=== PATIENT | female | born 1955 | race Caucasian/White ===

== ENCOUNTER 2017-07-03 22:33 | Emergency (ER) | payer OTHER ==
[2017-07-03 22:57] VITALS: RESP 16
--- NOTE | 2017-07-03 23:37 | EDPHY ---
H & P Stated Complaint: sudden loss of vision in L eye x 4hrs, aphasic x 1 week. HPI/ROS: HPI The patient presents with vision changes over the last 4 hours. She initially felt as if a piece of hair or eyelash was stuck in her left eye about 4 hours ago while she was walking. Her symptoms got progressively worse and she came in to the emergency department. She describes it as if there is a thin brown paper bag overlying her entire visual field. She has no pain. She has no prior history of similar. Yesterday, she [place] 13,000 [place]. Afterwards she developed which she describes as a mild migraine headache which was in her left frontal and retro-orbital region. This has improved completely today. She did mention to the nurse at triage that she was having some word-finding difficulties. She says over the last 3 weeks she sometimes gets her wording wrong though this happens very rarely. She has no slurring of her speech or memory loss. She denies any difficulty swallowing, weakness or numbness of her arms or legs or any facial droop. REVIEW OF SYSTEMS Constitutional: No fever, no chills. Eyes: No discharge. ENT: No sore throat. Cardiovascular: No chest pain, no palpitations. Respiratory: No cough, no shortness of breath. Gastrointestinal: No abdominal pain, no vomiting. Genitourinary: No hematuria. Musculoskeletal: No back pain. Skin: No rashes. Neurological: No headache. 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 General Appearance: Alert, no distress EYE EXAM Visual Acuity: Left eye shadows only, cannot count fingers, right eye 20/40, there is no obvious visual field cut on the left Pupils: equal round and reactive to light EOMI Skin: no proptosis, no periorbital erythema or swelling, no vesicles Conjunctivae: not injected, no discharge ENT, Mouth: Mucous membranes moist Respiratory: Breathing comfortably Neurological: A&O, cranial nerves 2-12 are intact, moves all extremities Skin: Warm and dry, no rashes Musculoskeletal: Neck is supple non tender Extremities: symmetrical, full range of motion Psychiatric: Patient is oriented X 3, there is no agitation Source: Patient Exam Limitations: No limitations - Personal History Current Tetanus Diphtheria and Acellular Pertussis (TDAP): Unsure - Medical/Surgical History Hx Asthma: No Hx Chronic Respiratory Disease: No Hx Diabetes: No Hx Cardiac Disease: No Hx Renal Disease: No Hx Cirrhosis: No Hx Alcoholism: No Hx HIV/AIDS: No Hx Splenectomy or Spleen Trauma: No Other PMH: sjogrens, hypothyroid, depression - Social History Smoking Status: Never smoked Constitutional: Initial Vital Signs Temperature (C) 36.4 C 07/03/17 22:54 Heart Rate 83 07/03/17 22:54 Respiratory Rate 16 07/03/17 22:54 Blood Pressure 160/92 H 07/03/17 22:54 O2 Sat (%) 97 07/03/17 22:54 O2 Delivery Mode Room Air Allergies/Adverse Reactions: No Known Allergies Allergy (Unverified 07/03/17 22:50) Home Medications: Medication Instructions Recorded Calcium Carbonate [Calcium] 500 mg PO 07/03/17 Cevimeline HCl [Evoxac] 07/03/17 Escitalopram Oxalate [Lexapro 10 07/03/17 MG] Levoxyl 07/03/17 Sennosides/Docusate Sodium [Stool 07/03/17 Softener Tablet] Medical Decision Making Procedures: Bedside ocular Ultrasound- performed and interpreted by me. Indication: Left-sided vision change Findings: 1/3 of posterior chamber with homogeneous appearance fluid which is mobile, there is no obvious retinal detachment, vitreous detachment possible Impression: Vitreus detachment likely with hemorrhage Differential Diagnosis: This is a 62-year-old female history of migraine headache and possible brain aneurysm with acute painless vision change of her left eye. On exam, she has extensive vitreus hemorrhage of her left eye, with likely associated vitreus detachment. Ultrasound does not reveal any retinal detachment. She does not have a headache, though does have a history of migraine, her neurologic exam is otherwise normal. I doubt CVA or subarachnoid hemorrhage. I discussed the diagnosis with her. I discussed the case with the curtain cutter personnel adviser Dr. Chiquis Gonzales. She agreed that the patient needs urgent follow-up tomorrow morning. The patient is to call her clinic at 8:30 a.m. for an appointment later in the morning. I will discharge the patient and I have given her return precautions. Departure - Departure Disposition: Home, Routine, Self-Care Clinical Impression: Vitreous detachment of left eye, Vitreous hemorrhage, left eye Condition: Good Instructions: Blurred Vision (ED) Additional Instructions: Please call the Pediatric Assistant's office tomorrow at 8:30am for an appointment later in the morning. [phone] Referrals: Chiquis Gonzales MD [Non Staff Provider (MD)] - As per Instructions
[2017-07-03 23:40] VITALS: BP 125/78; PULSE 85; TEMP 97.9; O2SAT 96
== END 2017-07-03 23:43 | disposition home or self-care (01) ==
LOC: CED 22:33
DX: H43.812 Vitreous degeneration, left eye (principal); H43.12 Vitreous hemorrhage, left eye

== ENCOUNTER 2017-10-11 09:06 | Emergency (ER) | payer OTHER ==
--- NOTE | 2017-10-11 10:10 | EDPHY ---
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 She states she has developed a significant nonproductive cough for the past 2 days. She now has diffuse body aches. She describes back pain. She has noticed increased heart rate when she is walking up stairs. She has no leg pain or swelling. No abdominal pain. No nausea vomiting. She denies fevers or chills. Patient states she is concerned she has pneumonia or the flu. REVIEW OF SYSTEMS: My complete review of systems is negative except as mentioned in the HPI. 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 HEENT: Eyes normal to inspection, normal pharynx, no signs of dehydration. NECK: No thyromegaly, no lymphadenopathy, supple. RESPIRATORY: Clear to auscultation bilaterally, no rales, rhonchi or wheezing. CVS: Regular rate and rhythm, no rubs, murmurs, or gallops. ABDOMEN: Soft, nontender, nondistended, no organomegaly. BACK: Normal to inspection, no CVA tenderness. SKIN: Normal color, no rash, warm, dry. No pallor. EXTREMITIES: No pedal edema, no calf tenderness, no Homans sign or cords, no joint swelling. NEURO/PSYCH: Alert and oriented x3, normal mood and affect, normal motor sensory exam. No obvious cranial nerve deficit. Constitutional: Initial Vital Signs Temperature (C) 36 C 10/11/17 09:33 Heart Rate 97 10/11/17 09:33 Respiratory Rate 16 10/11/17 09:33 Blood Pressure 110/77 10/11/17 09:33 O2 Sat (%) 96 10/11/17 09:33 O2 Delivery Mode Room Air Allergies/Adverse Reactions: SANCERT Allergy (Uncoded 10/11/17 09:36) Home Medications: Medication Instructions Recorded Cevimeline HCl [Evoxac] 07/03/17 Escitalopram Oxalate [Lexapro 10 07/03/17 MG] Levoxyl 07/03/17 Oseltamivir Phosphate [Tamiflu] 75 mg PO BID 5 Days capsule 10/11/17 Wellbutrin 10/11/17 Medical Decision Making - Diagnostics Imaging Results: Imaging Impressions Chest X-Ray 10/11/17 09:25 Impression: Mild airways disease. No pneumonia. ED Course/Re-evaluation: In the emergency department I discussed possible etiologies with the patient. Chest x-ray and flu swab was ordered. Chest x-ray: Please refer the dictated report by Dr. Caal. No focal infiltrate. Patient was flu a positive. I discussed the results with the patient. Patient was given warnings and instructions for return. She will be given a prescription of Tamiflu. She is given warnings prior to leaving. Differential Diagnosis: My differential includes but is not limited to pneumonia, influenza, bronchitis , bacteremia, sepsis - Data Points Laboratory Results: 10/11/17 09:20 Influenza A,B Rapid POSITIVE FOR FLU A H (NEGATIVE) Departure - Departure Disposition: Home, Routine, Self-Care Clinical Impression: Influenza A Condition: Good Instructions: Influenza (ED) Additional Instructions: You had a positive influenza a test. Your x-ray did not show any focal infiltrates (pneumonia) at this time. Return with increasing shortness of breath, worsening body aches, or any other concerns. Referrals: KAYA GUERRERO [Primary Care Provider] - 5-7 days, call for appt. Prescriptions: Oseltamivir Phosphate [Tamiflu] 75 mg PO BID 5 Days capsule
[2017-10-11 10:21] VITALS: BP 128/70; PULSE 83; RESP 20; TEMP 99.3; O2SAT 97
== END 2017-10-11 10:21 | disposition home or self-care (01) ==
LOC: CED 09:06
DX: J10.1 Influenza due to other identified influenza virus with other respiratory manifestations (principal)
CPT/HCPCS: 71020-PO; 87400-PO

== ENCOUNTER 2018-02-26 15:04 | Emergency (ER) | payer OTHER ==
--- NOTE | 2018-02-26 15:13 | EDPHY ---
H & P Time Seen by Provider: 02/26/18 15:12 HPI/ROS: HPI CHIEF COMPLAINT: Neck pain, trouble fingers and left hand HISTORY OF PRESENT ILLNESS: Patient is a 62-year-old female she is otherwise healthy, she had a remote history of cervical spinal fusion done approximately 10 years ago, she presents emergency room stating that she is due to have a revision of this spinal fusion and is currently undergoing consultation with a neurosurgeon. However this morning she woke up with some worsening neck pain and trouble with her 4th and 5th digit on the left hand. They are somewhat hyperreflexic in. She states they are numb. She is concerned that her neck may be getting worse. She denies any chest pain or shortness of breath, denies headache. Denies arm weakness. She does report numbness and tingling in her 4th and 5th digit. And that they are weak. The 5th digit is noted to be flexed in. She does have some radicular pain from her neck on the left side going down her left arm. Past Medical History: Sjogren's, carrier of hemochromatosis Past Surgical History: Cervical spine fusion, overactive me, retinal detachment , cataract, appendectomy Social History: Denies drugs alcohol tobacco. Family History: ROS REVIEW OF SYSTEMS: A comprehensive 10 point review of systems is otherwise negative aside from elements mentioned in the history of present illness. Exam Constitutional triage nursing summary reviewed, vital signs reviewed, awake/ alert. Eyes normal conjunctivae and sclera, EOMI, PERRLA. HENT normal inspection, atraumatic, moist mucus membranes, no epistaxis, neck supple/ no meningismus, no raccoon eyes. Respiratory clear to auscultation bilaterally, normal breath sounds, no respiratory distress, no wheezing. Cardiovascular rate normal, regular rhythm, no murmur, no edema, distal pulses normal. Gastrointestinal soft, non-tender, no rebound, no guarding, normal bowel sounds, no distension, no pulsatile mass. Genitourinary no CVA tenderness. Musculoskeletal no midline vertebral tenderness, full range of motion, no calf swelling, no tenderness of extremities, no meningismus, good pulses, neurovascularly intact. Skin pink, warm, & dry, no rash, skin atraumatic. Neurologic Left ARM: This is a good distal pulse. 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 awake, alert and oriented x 3, AAOx3, moves all 4 extremities equally, motor intact, sensory intact, CN II-XII intact, normal cerebellar, normal vision, normal speech. Psychiatric normal mood/affect. Heme/Lymph/Immune no lymphadenopathy. Differential Diagnosis: Includes not limited to in a particular order ulnar nerve neuropathy, complication of cervical fusion, hardware loosening, nerve root compression Medical Decision Making: After lengthy discussion with the patient recommend urgent MRI either [facility] emergency room or [facility] emergency room the patient prefers to go to [facility] emergency room. Plan will be for urgent neck MRI to evaluate the weakness in her left hand that appears to be in the ulnar distribution. I spoke with Dr. Tyrone Moe who is the attending over at [facility] ER who will see and evaluate the patient for most likely MRI of the cervical spine. Re-evaluation: Patient can be safely discharged from [facility] Emergency room she will go by private vehicle over to [facility] ER. They are expecting her. Source: Patient - Personal History Tetanus Vaccine Date: < 10 YEARS - Medical/Surgical History Hx Asthma: No Hx Chronic Respiratory Disease: No Hx Diabetes: No Hx Cardiac Disease: No Hx Renal Disease: No Hx Cirrhosis: No Hx Alcoholism: No Hx HIV/AIDS: No Hx Splenectomy or Spleen Trauma: No Other PMH: sjogrens, hypothyroid, depression - Social History Smoking Status: Never smoked Constitutional: Initial Vital Signs Temperature (C) 36.6 C 02/26/18 15:15 Heart Rate 74 02/26/18 15:15 Respiratory Rate 18 02/26/18 15:15 Blood Pressure 139/88 H 02/26/18 15:15 O2 Sat (%) 96 02/26/18 15:15 O2 Delivery Mode Room Air Allergies/Adverse Reactions: SANCERT Allergy (Uncoded 10/11/17 09:36) Home Medications: Medication Instructions Recorded NK [No Known Home Meds] 02/26/18 Departure - Departure Disposition: Home, Routine, Self-Care Clinical Impression: Ulnar nerve neuropathy Qualifiers: Laterality: left Qualified Code(s): G56.22 - Lesion of ulnar nerve, left upper limb Condition: Good Instructions: Paresthesia (ED), Peripheral Neuropathy (ED) Additional Instructions: 1. Please go to [facility] emergency room. They are expecting you. Referrals: Terri Hobson PA [Primary Care Provider] - As per Instructions
--- NOTE | 2018-02-26 18:04 | EDPHY ---
H & P Stated Complaint: c/o Little finger weaknes, numbness and inc. neck pain since this am Time Seen by Provider: 02/26/18 15:12 HPI/ROS: CHIEF COMPLAINT: Paresthesias and weakness HISTORY OF PRESENT ILLNESS: The patient is referred to the emergency department for evaluation of paresthesias and weakness involving the left hand. The patient has a history of prior cervical spine fusion performed in 2007. She has been experiencing intermittent worsening neck pain and decreased range of motion for some time. She is currently under the care of a neurosurgeon in [place]. The patient did have recent cervical spine x-rays which demonstrated the possibility of a loosening hardware at C7. The patient reports that today she is notice paresthesias involving her 4th and 5th fingers. She is having inability to flex and extend her left 5th finger. REVIEW OF SYSTEMS: A comprehensive 10 point review of systems is otherwise negative aside from elements mentioned in the history of present illness. Source: Patient Exam Limitations: No limitations - Personal History Current Tetanus Diphtheria and Acellular Pertussis (TDAP): No Tetanus Vaccine Date: < 10 YEARS - Medical/Surgical History Hx Asthma: No Hx Chronic Respiratory Disease: No Hx Diabetes: No Hx Cardiac Disease: No Hx Renal Disease: No Hx Cirrhosis: No Hx Alcoholism: No Hx HIV/AIDS: No Hx Splenectomy or Spleen Trauma: No Other PMH: sjogrens, hypothyroid, depression - Social History Smoking Status: Never smoked - Physical Exam Exam: General Appearance: Alert, no distress Respiratory: There are no retractions, lungs are clear to auscultation Cardiovascular: Regular rate and rhythm Gastrointestinal: Abdomen is soft and nontender, no masses, bowel sounds normal Neurological: Patient is notice have decreased sensation to light touch along the 5th and 4th left fingers. The patient is unable to fully extend her left 5th finger at the DIP joint. She also is having decreased range of motion with flexion to the 4th and 5th fingers. Skin: Warm and dry, no rashes Musculoskeletal: Neck is supple nontender Extremities: symmetrical, full range of motion Constitutional: Initial Vital Signs Temperature (C) 36.6 C 02/26/18 15:15 Heart Rate 74 02/26/18 15:15 Respiratory Rate 18 02/26/18 15:15 Blood Pressure 139/88 H 02/26/18 15:15 O2 Sat (%) 96 02/26/18 15:15 O2 Delivery Mode Room Air Allergies/Adverse Reactions: SANCERT Allergy (Uncoded 10/11/17 09:36) Home Medications: Medication Instructions Recorded NK [No Known Home Meds] 02/26/18 Medical Decision Making - Diagnostics Imaging Results: Imaging Impressions Cervical Spine MRI 02/26/18 16:41 Impression: No source for upper extremity weakness identified. Results called to Dr. Tyrone Moe at 6:22 PM. ED Course/Re-evaluation: The patient presents to the ED with a neuropathy that appears to be an ulnar distribution. Given her history of cervical spine fusion a MRI of the neck was ordered which demonstrates no significant changes from her prior MRI 1 year ago. The patient's examination appears to be most consistent with a ulnar peripheral neuropathy. The patient will be placed in a supportive splint. I have asked her to follow up with our on-call neurologist for consideration of EMG testing. The patient has been instructed to return to the ED for the development of any new neurologic symptoms as this would not be expected with a diagnosis of a peripheral neuropathy of the ulnar nerve. Differential Diagnosis: Differential diagnosis considered includes cervical stenosis, cervical radiculopathy, peripheral neuropathy, myopathy Departure - Departure Disposition: Home, Routine, Self-Care Clinical Impression: Ulnar nerve neuropathy Qualifiers: Laterality: left Qualified Code(s): G56.22 - Lesion of ulnar nerve, left upper limb Condition: Good Instructions: Peripheral Neuropathy (ED), Paresthesia (ED) Additional Instructions: 1. Please wear splint for support. 2. Please schedule a follow-up appointment with a neurologist, Dr. Gary Ordaz , you have been referred to for further evaluation of a possible ulnar nerve neuropathy. 3. I would not expect you develop any new symptoms of numbness or weakness outside of your left upper extremity. Please return to the ED for the development of any new numbness or weakness . Referrals: Gary Ordaz, DO [Medical Doctor] - As per Instructions
[2018-02-26 19:07] VITALS: BP 120/69
== END 2018-02-26 19:07 | disposition home or self-care (01) ==
LOC: CED 15:04
DX: G56.22 Lesion of ulnar nerve, left upper limb (principal)
CPT/HCPCS: L3925

== ENCOUNTER 2018-05-20 07:15 | Inpatient (IN) | payer OTHER ==
[~2018-05-20 07:15] MED LIST: TRANEXAMIC ACID 1,000 MG in NS 100 ML IV ONE
[2018-05-20] MEDS ORDERED: GABAPENTIN 300 MG CAP PO ONE (09:17)
[2018-05-20] MEDS ORDERED: ceFAZolin 2 GM/DEXTROSE 100 ML IV ONE (09:17)
[2018-05-20] MEDS ORDERED: ACETAMINOPHEN 500 MG TAB PO ONE (09:17)
[2018-05-20] MEDS ORDERED: LIDOCAINE 1% 2 ML INJ ID PRN (09:22)
[2018-05-20] MEDS ORDERED: LR 1,000 ML IV ONE (09:22)
[2018-05-20] MEDS ORDERED: BACITRACIN ZINC 14.2 GM OINTTUBE TP ONE (09:41)
[2018-05-20] MEDS ORDERED: CHLORHEXIDINE GLUC HIBICLENS 118 ML BTL TP ONE (09:41)
[2018-05-20] MEDS ORDERED: EPINEPHrine 1 MG/ML INJ ONE (09:42)
[2018-05-20] MEDS ORDERED: BUPIVACAINE 0.25% 30 ML SDV ONE (09:42)
[2018-05-20] MEDS ORDERED: THROMBIN (BOVINE) 5,000 UNIT VIAL TP ONE (09:42)
[2018-05-20] MEDS ORDERED: BACITRACIN 50,000 UNITS/10 ML SYR IRR ONE (09:43)
--- NOTE | 2018-05-20 09:50 | PDHPUP ---
History & Physical Update H&P update statement: This history and physical update is based on an assessment of the patient which was completed after admission or registration (within 24 hours), but prior to the surgery/procedure. H&P update: H&P reviewed & patient examined, no change in patient's condition since H&P completed
[2018-05-20] MEDS ORDERED: MIDAZOLAM 2 MG/2 ML VIAL ONE (10:19)
[2018-05-20] MEDS ORDERED: PROPOFOL 200 MG/20 ML VIAL ONE (10:20)
[2018-05-20] MEDS ORDERED: PROPOFOL/EMULSION 500 MG/50 ML BOTTLE IV ONE ×2 (10:20→12:48)
[2018-05-20] MEDS ORDERED: fentaNYL 100 MCG/2 ML INJ ONE (10:20)
[2018-05-20] MEDS ORDERED: METOCLOPRAMIDE 10 MG/2 ML VIAL ONE (10:23)
[2018-05-20] MEDS ORDERED: ONDANSETRON 4 MG/2 ML VIAL ONE (10:23)
[2018-05-20] MEDS ORDERED: ROCURONIUM 50 MG/5 ML VIAL ONE (10:23)
--- NOTE | 2018-05-20 10:48 | PDANEPAE ---
ANE Past Medical History - Cardiovascular History Hx Hypertension: No Hx Arrhythmias: No Hx Chest Pain: No Hx Coronary Artery / Peripheral Vascular Disease: No Hx CHF / Valvular Disease: No Hx Palpitations: No - Pulmonary History Hx COPD: No Hx Asthma/Reactive Airway Disease: No Hx Recent Upper Respiratory Infection: No Hx Oxygen in Use at Home: No Hx Sleep Apnea: No Sleep Apnea Screening Result - Last Documented: Negative - Neurologic History Hx Cerebrovascular Accident: No Hx Seizures: No Hx Dementia: No Neurologic History Comment: migraines- have gotten better with menopause - Endocrine History Hx Diabetes: No Endocrine History Comment: hypothyroidism. sjogrens disease- extremely dry mouth - Renal History Hx Renal Disorders: Yes Renal History Comment: hx of urinary retention with surgeries - Liver History Hx Hepatic Disorders: No - Neurological & Psychiatric Hx Hx Neurological and Psychiatric Disorders: Yes Neurological / Psychiatric History Comment: depression - Cancer History Hx Cancer: Yes Cancer History Comment: basal cell to nose removed - Congenital Disorder History Hx Congenital Disorders: No - GI History Hx Gastrointestinal Disorders: Yes Gastrointestinal History Comment: chronic constipation uses mg and colace - Other Health History Other Health History: wears glasses. dental implants and crowns. carrier for hemochromotosis - Chronic Pain History Chronic Pain: Yes (neck pain and migraines) - Surgical History Prior Surgeries: appy with right oophorectomy 10/2012. c-spine surgery 2007. left vitrectomy 06/2017. bilateral catarats 09/2017, 10/2017. left pinky surgery ANE Review of Systems Review of Systems: - Exercise capacity METS (RN): 4 METS ANE Patient History - Allergies Allergies/Adverse Reactions: methysergide [From Sansert] Allergy (Verified 05/13/18 11:01) caused urinary retention - Home Medications Home Medications: Cevimeline HCl [Evoxac] 30 mg PO TID 04/11/18 [Last Taken 05/20/18 06:00] Escitalopram Oxalate [Lexapro] 20 mg PO DAILY 04/11/18 [Last Taken 05/20/18 06: 00] Estrogen Cream 1 jes TD HS 04/11/18 [Last Taken 05/19/18] Levothyroxine [Synthroid 88 mcg (*)] 88 mcg PO DAILY06 04/11/18 [Last Taken 06:00] Progesterone Cap 250 mg PO HS 04/11/18 [Last Taken 05/19/18 21:00] Docusate Sodium 250 mg PO HS 05/12/18 [Last Taken 05/19/18 21:00] Herbals/Supplements -Info Only 1 ea PO DAILY 05/12/18 [Last Taken 05/13/18] Magnesium Oxide [Magnesium Oxide 400 mg (*)] 200 mg PO DAILY 05/12/18 [Last Taken 05/20/18 06:00] Magnesium Oxide [Magnesium Oxide 400 mg (*)] 400 mg PO HS 05/12/18 [Last Taken 05/19/18 21:00] - NPO status NPO Since - Liquids (Date): 05/19/18 NPO Since - Liquids (Time): 07:00 NPO Since - Solids (Date): 05/19/18 NPO Since - Solids (Time): 21:00 - Smoking Hx Smoking Status: Never smoked - Family Anes Hx Family Hx Anesthesia Complications: none ANE Labs/Vital Signs - Vital Signs Blood Pressure: 134/81 Heart Rate: 70 Respiratory Rate: 16 O2 Sat (%): 96 Height: 167.64 cm Weight: 50.802 kg ANE Physical Exam - Airway Mallampati Score: Class 2 Mouth exam: small mouth opening - ASA Status ASA Status: II ANE Anesthesia Plan Anesthesia Plan: general endotracheal anesthesia Urgent/Emergent Case: Lorraine rutledge completed preop but documented later for safe timely pt care
[2018-05-20] MEDS ORDERED: PHENYLEPHRINE HCL 100 MCG/ML SYR ONE (11:05)
[2018-05-20] MEDS ORDERED: CITRATE DEXTROSE SOLN 500 ML BAG ONE ×2 (11:10→14:09)
[2018-05-20] MEDS ORDERED: LIDOCAINE 2% JELLY 5 ML TUBE ONE (13:44)
[2018-05-20] MEDS ORDERED: ePHEDrine SULFATE 25 MG/5 ML SYR ONE (14:13)
--- NOTE | 2018-05-20 15:17 | GOP ---
[f rep st] OPERATIVE REPORT DATE OF OPERATION: 05/20/2018 SURGEON: Eduardo Santos MD NEUROSURGEON: Eduardo Santos MD VEHICLE WINDOW TINTER: Daniel Lebron PA-C ANESTHESIA: General endotracheal. PREOPERATIVE DIAGNOSIS: 1. Intractable neck pain, failed conservative care. 2. C3-4 cervical stenosis and neural foraminal encroachment. 3. C4-5 and C6-7 pseudoarthrosis/nonunion, status post prior C4 through 7 anterior cervical decompre ssion and stabilization/fusion with plating. 4. Retained hardware. POSTOPERATIVE DIAGNOSIS: 1. Intractable neck pain, failed conservative care. 2. C3-4 cervical stenosis and neural foraminal encroachment. 3. C4-5 and C6-7 pseudoarthrosis/nonunion, status post prior C4 through 7 anterior cervical decompre ssion and stabilization/fusion with plating. 4. Retained hardware. PROCEDURE PERFORMED: 1. C3 through C7 posterior segmental (pedicle screw and lateral mass screw) fixation and posterolate ral fusion with local autograft and bone morphogenic protein. 2. Use of intraoperative microscopy and fluoroscopy. FINDINGS: ESTIMATED BLOOD LOSS: 75 cc. INDICATIONS: The patient is a 63-year-old woman with intractable neck pain and left upper extremity radicular symptoms secondary to C4-5 and C6-7 pseudarthrosis/nonunions and cervical degeneration and stenosis with neural foraminal impingement at C3-4. She has failed extensive conservative care and p resents now for removal and replacement of hardware and exploration of fusion and redo two-level ante rior cervical diskectomy, arthrodesis and a new anterior cervical decompression and fusion at C3-4. The patient is being reinforced posteriorly from this procedure so that we minimize the risk of a rec urring nonunion. DESCRIPTION OF PROCEDURE: After the anterior portion of the procedure was completed, the patient was repositioned prone with the head in the radiolucent Malik head start director. The posterior cervical re gion was prepped and draped in sterile fashion. After fluoroscopic localization of the correct level s, the subcutaneous and intramuscular tissues were infiltrated with local anesthesia. A midline line ar incision was then created from approximately C3 through C7. This was carried down to the fascial layer, which was then incised using monopolar electrocautery and carried in a subperiosteal plane miguelina ng the spinous processes and lamina bilaterally. Following re-verification of the correct levels, th e dissection was carried out over the facet joints. Following this, lateral mass screw fixation was placed in a standard fashion from C3 through C6 and the O-arm neuronavigational system was utilized w ViVu computer volumetric stereotactic navigation in order to place pedicle screws at C7. Each individ ual screw was tested neurophysiologically with monopolar electrostimulation and interpretation of the potentials by the surgeon. The rods were then contoured and placed and secured under maximal lordos is. A drain was placed and the remainder of the local autograft and bone morphogenic protein was hugh mila out laterally for posterolateral fusion from C3 through C7. A drain was then placed. The subcut aneous and intramuscular tissues were re-infiltrated with local anesthesia. The wound was closed in a layered fashion using interrupted Vicryl sutures followed by Steri-Strips on the skin. COMPLICATIONS: None. DISPOSITION: The patient is currently in the process of being repositioned for extubation. /[id number]/MODL
--- NOTE | 2018-05-20 15:22 | GOP ---
[f rep st] OPERATIVE REPORT DATE OF OPERATION: 05/20/2018 SURGEON: Eduardo Santos MD NEUROSURGEON: Eduardo Santos MD RESEARCH HYDRAULIC ENGINEER: Daniel Lebron PA-C. ANESTHESIA: General endotracheal. PREOPERATIVE DIAGNOSIS: 1. Intractable neck pain, failed conservative care. 2. C3-4 cervical stenosis and neural foraminal encroachment. 3. 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 4. Retained hardware. POSTOPERATIVE DIAGNOSIS: 1. Intractable neck pain, failed conservative care. 2. C3-4 cervical stenosis and neural foraminal encroachment. 3. 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 4. Retained hardware. PROCEDURE PERFORMED: 1. Removal of anterior cervical plate from C4 through C7 with exploration of spinal fusion at C5-6. 2. C4-5 and C6-7 redo anterior cervical diskectomy and arthrodesis with 2 structural PEEK interbody spacers. 3. New C3-4 anterior cervical diskectomy and arthrodesis with a structural PEEK interbody spacer. 4. Placement of a C3 through c5 and C6-7 anterior cervical plates and screws. 5. Use of intraoperative microscopy and fluoroscopy. FINDINGS: ESTIMATED BLOOD LOSS: 75 cc. INDICATIONS: The patient is a 63-year-old woman with intractable neck pain and left upper extremity radicular symptoms secondary to C4-5 and C6-7 pseudarthrosis/nonunions and cervical degeneration and stenosis with neural foraminal impingement at C3-4. She has failed extensive conservative care and presents now for removal and replacement of hardware and exploration of fusion and redo two-level anterior cervical diskectomy, arthrodesis and a new anterior cervical decompression and fusion at C3-4. DESCRIPTION OF PROCEDURE: After informed consent was obtained, the patient was taken to the operating room and placed in the supine position with the head in the halter retractor system. The anterior cervical region was prepped and draped in sterile fashion. After fluoroscopic localization of the correct levels, the subcutaneous and intramuscular tissues were infiltrated with local anesthesia. A horizontal linear incision was then created at approximately C5. This was carried through the platysmal layer using monopolar electrocautery and carried in the avascular plane between the sternocleidomastoid and carotid sheath laterally and the strap muscles, trachea, and esophagus medially down to the prevertebral fascia, which was carefully incised with Metzenbaum scissors. The prior instrumentation was identified and carefully dissected out along with the C3-4 interspace where the large anteriorly protruding osteophyte was carefully removed. The lower portion of the plate could not be exposed with this incision, so a 2nd horizontal incision was created a couple centimeters below this. The bottom of the plate was exposed through this. The prior screws were carefully removed in the standard fashion and the holes filled with Gelfoam. The distraction pins were then serially inserted, 1st at C3-4, then at C4-5, then at C6-7, during which time complete diskectomies were performed with removal of posterior longitudinal ligament at C3-4. Bilateral foraminotomies were performed with special attention focused on the left side, where the nerve root was thoroughly opened along with the spinal canal which was extensively decompressed with removal of the posteriorly protruding osteophytes. Following adequate decompression, the remaining endplates were carefully prepared and an appropriately sized structural PEEK interbody spacer was packed in the interspace under fluoroscopic image guidance. The C4-5 and C6 -7 levels were then addressed and the nonunion was carefully drilled down under fluoroscopic image guidance and quite a bit of pseudarthrotic material was found at both locations. All the screws drilled out and any good bone was saved for replacement and the nonunion material was discarded. Both the C4-5 and the C6-7 levels were packed with structural PEEK interbody spacer, packed with local autograft along with demineralized bone matrix in the centers. The distraction was removed and an appropriately sized Trinica R[employer] anterior cervical plate was 1st placed from C3 through C5 with self-drilling screws and then a 2nd plate at C6-7. After verification of good position of the screws and plates, the locking mechanisms were engaged. A drain was placed. The subcutaneous and intramuscular tissues were re-infiltrated with local anesthesia. The wound was closed in a layered fashion using interrupted Vicryl sutures followed by Steri-Strips on the skin. COMPLICATIONS: None. DISPOSITION: The patient remained intubated and was repositioned prone for the posterior portion of the operation. /[id number]/MODL MTDD
[2018-05-20] MEDS ORDERED: ceFAZolin 1 GM VIAL ONE ×2 (15:46)
[2018-05-20] MEDS ORDERED: ONDANSETRON 4 MG/2 ML VIAL IVP PRN ×2 (16:18→16:32)
[2018-05-20] MEDS ORDERED: NALOXONE HCL 0.4 MG/ML INJ IVP PRN ×2 (16:18→16:32)
[2018-05-20] MEDS ORDERED: morphINE PCA 30 MG/30 ML PCA IV PRN (16:18)
[2018-05-20] MEDS ORDERED: LACTULOSE 20 GM/30 ML UDCUP PO PRN (16:18)
[2018-05-20] MEDS ORDERED: diphenhydrAMINE 25 MG CAP PO PRN (16:18)
[2018-05-20] MEDS ORDERED: BISACODYL 10 MG SUPP PR PRN (16:18)
[2018-05-20] MEDS ORDERED: MAGNESIUM HYDROXIDE 30 ML UDCUP PO PRN (16:18)
--- NOTE | 2018-05-20 16:31 | SOAPPROG ---
SOAP Progress Note Assessment/Plan: Assessment: 63 yo F sp C3/4, redo C4/5, C6/7 ACDF and C3-7 posterior fusion Plan: stable hard collar confirm dobhoff placement with KUB, start tubefeeds once placement confirmed PT/OT please call with neuro changes 05/20/18 16:29 Subjective: + neck pain, no arm pain Objective: Vital Signs Temp Pulse Resp BP Pulse Ox 36.3 C 70 16 134/81 H 96 05/20/18 09:52 05/20/18 10:52 05/20/18 10:52 05/20/18 10:52 05/20/18 10:52 somnolent PERRL, no facial droop TIBURCIO x 4 + light touch ICD10 Worksheet Patient Problems: Problems Problem Status Onset Fusion of spine of cervical region Acute - ICD10 Problem Qualifiers (1) Fusion of spine of cervical region
[2018-05-20] MEDS ORDERED: LR 500 ML IV PRN (16:32)
[2018-05-20] MEDS ORDERED: PROMETHAZINE HCL 25 MG/ML INJ IVP PRN (16:32)
[2018-05-20] MEDS ORDERED: HYDROmorphONE/DILAUDID 1 MG/ML INJ IVP PRN (16:32)
[2018-05-20] MEDS ORDERED: fentaNYL 100 MCG/2 ML INJ IVP PRN (16:32)
[2018-05-20] MEDS ORDERED: DEXAMETHASONE 4 MG/ML VIAL IVP PRN (16:32)
--- NOTE | 2018-05-20 16:33 | POSTANESTH ---
Post Anesthetic Evaluation Cardiovascular Status: Normal, Stable Respiratory Status: Normal, Stable Level of Consciousness/Mental Status: Can Participate in Eval Pain Control: Adequate, Prn Tx Ordered Nausea/Vomiting Control: Adequate, Prn Tx Ordered Complications Possibly Related to Anesthesia: None Noted
[2018-05-20] MEDS ORDERED: HYDROmorphONE/DILAUDID 1 MG/ML INJ ONE (16:45)
[2018-05-20] MEDS ORDERED: DIAZEPAM 5 MG/ML 1 ML SYR ONE (17:18)
[2018-05-20] MEDS: DIAZEPAM 5 MG/ML 1 ML SYR IVP PRN (17:20)
[2018-05-20] MEDS: NS 1,000 ML IV SCH (18:45)
[2018-05-20] MEDS: SENNOSIDES/DOCUSATE SODIUM TAB PO SCH (20:41)
[2018-05-20] MEDS: FAMOTIDINE 20 MG TAB PO SCH (20:41)
[2018-05-20] MEDS: morphINE SR 15 MG TAB PO SCH (20:41)
[2018-05-20] MEDS: MAGNESIUM OXIDE 400 MG TAB PO SCH ×2 (20:41→20:45)
[2018-05-20] MEDS: CEVIMELINE HCL 30 MG PO SCH (20:45)
[2018-05-20] MEDS ORDERED: PROGESTERONE PO SCH (21:00)
[2018-05-20] MEDS ORDERED: BIEST TD SCH (21:00)
[2018-05-20] MEDS ORDERED: ESTROGEN TD SCH (21:00)
[2018-05-20] MEDS: ceFAZolin 2 GM/DEXTROSE 100 ML IV SCH (21:52)
[2018-05-20] MEDS: ESTROGEN TD SCH (21:57)
[2018-05-20] MEDS: BIEST TD SCH (21:57)
[2018-05-20] MEDS: PROGESTERONE PO SCH (21:58)
[2018-05-20] MEDS: GABAPENTIN 300 MG CAP PO SCH (22:00)
[2018-05-20] MEDS: ACETAMINOPHEN 500 MG TAB PO SCH (22:01)
[2018-05-20] MEDS: POLYETHYLENE GLYCOL 3350 17 GM PKT PO SCH (22:52)
[2018-05-20] MEDS: ONDANSETRON DISINTEGRATING 4 MG TAB PO PRN (22:53)
[2018-05-21 05:40] LABS: PLATELET COUNT 158 10^3/uL (150-400)
[2018-05-21] MEDS: GABAPENTIN 300 MG CAP PO SCH ×3 (05:40→21:58)
[2018-05-21] MEDS: ceFAZolin 2 GM/DEXTROSE 100 ML IV SCH (05:40)
[2018-05-21] MEDS: LEVOTHYROXINE 88 MCG TAB PO SCH (05:40)
[2018-05-21] MEDS: NS 1,000 ML IV SCH ×2 (05:41→10:53)
[2018-05-21] MEDS: ACETAMINOPHEN 500 MG TAB PO SCH ×3 (05:41→21:58)
[2018-05-21] MEDS ORDERED: NS 500 ML IV ONE ×2 (06:30→11:00)
--- NOTE | 2018-05-21 07:26 | SOAPPROG ---
SOAP Progress Note Assessment/Plan: Assessment: 63 yo F POD #1 C3/4, redo C4/5, C6/7 ACDF and C3-7 posterior fusion Plan: stable hard collar confirm dobhoff placement with KUB, start tubefeeds once placement confirmed, will have dietary and speech evaluate patient hx of urinary retention, will keep hernandes one more day x-rays today PT/OT please call with neuro changes 05/20/18 16:29 05/21/18 07:24 Subjective: some neck pain, no arm pain or paresthesias, patient swallowing ok Objective: Vital Signs Temp Pulse Resp BP Pulse Ox 36.9 C 75 15 86/55 L 96 05/21/18 03:49 05/21/18 05:45 05/21/18 03:49 05/21/18 05:45 05/21/18 05:45 Laboratory Results 05/21/18 05:20 05/21/18 05:20 05/20/18 05/21/18 05/22/18 05:59 05:59 05:59 Intake Total 4320 Output Total 1160 Balance 3160 AAOx4, +FC PERRL, No facial droop 5/5 + light touch C/D/I x 2 ICD10 Worksheet Patient Problems: Problems Problem Status Onset Fusion of spine of cervical region Acute - ICD10 Problem Qualifiers (1) Fusion of spine of cervical region
[2018-05-21] MEDS: SENNOSIDES/DOCUSATE SODIUM TAB PO SCH ×2 (07:38→22:04)
[2018-05-21] MEDS: morphINE SR 15 MG TAB PO SCH ×2 (07:41→21:57)
[2018-05-21] MEDS: POLYETHYLENE GLYCOL 3350 17 GM PKT PO SCH ×3 (07:41→22:04)
[2018-05-21] MEDS: oxyCODONE IR 5 MG TAB PO PRN ×3 (07:42→21:57)
[2018-05-21] MEDS: ESCITALOPRAM OXALATE 10 MG TAB PO SCH (07:43)
[2018-05-21] MEDS: METHOCARBAMOL 750 MG TAB PO PRN ×3 (07:45→18:16)
[2018-05-21] MEDS: CEVIMELINE HCL 30 MG PO SCH ×3 (07:45→18:11)
[2018-05-21] MEDS: FAMOTIDINE 20 MG TAB PO SCH ×2 (07:46→21:58)
[2018-05-21] MEDS: MAGNESIUM OXIDE 400 MG TAB PO SCH ×2 (07:49→21:57)
[2018-05-21] MEDS: ONDANSETRON DISINTEGRATING 4 MG TAB PO PRN ×3 (13:28→21:21)
--- NOTE | 2018-05-21 14:56 | PDMN ---
Medical Necessity Medical necessity: [facility] S330 Cervical Fusion, Posterior Medicare INPT Only, S320 , Cervical Fusion, Anterior. 63 y/o s/p C3/4 w/ redo C4/5 cervical fusion anterior; C3/7 cervical fusion posterior instrumentation w/ stealth; C4/7 cervical hardware removal anterior.
--- NOTE | 2018-05-21 16:22 | ASMTCMCOM ---
CM Note CM Note Notes: Chart reviewed, pt had planned surgery. OT rec home, [employer] rec home. PT eval pending. Pt does not require feeding tube. Resides with . CM to follow for d/c planning. Date Signed: 05/21/2018 04:22 PM Electronically Signed By:NINA Harrison
[2018-05-21] MEDS: PROGESTERONE PO SCH (21:58)
[2018-05-21] MEDS: ESTROGEN TD SCH (22:04)
[2018-05-21] MEDS: BIEST TD SCH (22:04)
[2018-05-22] MEDS: METHOCARBAMOL 750 MG TAB PO PRN ×4 (01:31→17:55)
[2018-05-22] MEDS: oxyCODONE IR 5 MG TAB PO PRN ×4 (01:31→13:25)
[2018-05-22] MEDS: ACETAMINOPHEN 500 MG TAB PO SCH (06:19)
[2018-05-22] MEDS: GABAPENTIN 300 MG CAP PO SCH (06:19)
[2018-05-22] MEDS: LEVOTHYROXINE 88 MCG TAB PO SCH (06:20)
[2018-05-22] MEDS: ONDANSETRON DISINTEGRATING 4 MG TAB PO PRN ×3 (07:05→19:06)
--- NOTE | 2018-05-22 07:28 | SOAPPROG ---
SOAP Progress Note Assessment/Plan: Assessment: 63 yo F POD #2 C3/4, redo C4/5, C6/7 ACDF and C3-7 posterior fusion Plan: stable hard collar confirm dobhoff placement with KUB, start tubefeeds once placement confirmed, will have dietary and speech evaluate patient will stop MScontin and other meds hx of urinary retention, will remove hernandes this am post op x-rays look great PT/OT please call with neuro changes patient seen by Dr Marcus today 05/20/18 16:29 05/21/18 07:24 05/22/18 07:26 Subjective: continued neck pain, no arm pain, no weakness Objective: Vital Signs Temp Pulse Resp BP Pulse Ox 36.9 C 66 15 99/57 L 90 L 05/22/18 04:00 05/22/18 04:00 05/22/18 04:00 05/22/18 04:00 05/22/18 04:00 Laboratory Results 05/21/18 05:20 05/21/18 05:20 05/21/18 05/22/18 05/23/18 05:59 05:59 05:59 Intake Total 4320 200 Output Total 1160 805 Balance 3160 -605 AAOx4, +FC PERRL, EOMI, no facial droop 5/5 + light touch C/D/I x 2 ICD10 Worksheet Patient Problems: Problems Problem Status Onset Fusion of spine of cervical region Acute - ICD10 Problem Qualifiers (1) Fusion of spine of cervical region
[2018-05-22] MEDS: FAMOTIDINE 20 MG TAB PO SCH ×2 (07:56→20:50)
[2018-05-22] MEDS: POLYETHYLENE GLYCOL 3350 17 GM PKT PO SCH ×4 (07:56→20:49)
[2018-05-22] MEDS: SENNOSIDES/DOCUSATE SODIUM TAB PO SCH ×2 (07:57→20:50)
[2018-05-22] MEDS: ESCITALOPRAM OXALATE 10 MG TAB PO SCH (07:57)
[2018-05-22] MEDS: CEVIMELINE HCL 30 MG PO SCH ×3 (08:04→17:56)
[2018-05-22] MEDS: MAGNESIUM OXIDE 400 MG TAB PO SCH ×3 (08:04→20:50)
[2018-05-22] MEDS: HYDROmorphONE/DILAUDID 2 MG TAB PO PRN ×2 (17:10→19:07)
[2018-05-22] MEDS: BIEST TD SCH (20:54)
[2018-05-22] MEDS: PROGESTERONE PO SCH (20:54)
[2018-05-22] MEDS: ESTROGEN TD SCH (20:54)
[2018-05-22] MEDS: DIAZEPAM 5 MG/ML 1 ML SYR IVP PRN (21:16)
[2018-05-23] MEDS: HYDROmorphONE/DILAUDID 2 MG TAB PO PRN ×4 (01:24→15:56)
[2018-05-23] MEDS: ONDANSETRON DISINTEGRATING 4 MG TAB PO PRN (01:24)
[2018-05-23] MEDS: METHOCARBAMOL 750 MG TAB PO PRN ×2 (05:04→15:17)
[2018-05-23] MEDS: LEVOTHYROXINE 88 MCG TAB PO SCH (05:05)
[2018-05-23] MEDS: CEVIMELINE HCL 30 MG PO SCH (08:28)
[2018-05-23] MEDS: ESCITALOPRAM OXALATE 10 MG TAB PO SCH (08:29)
[2018-05-23] MEDS: FAMOTIDINE 20 MG TAB PO SCH (08:29)
[2018-05-23] MEDS: ENOXAPARIN 40 MG/0.4 ML SYR SC SCH ×2 (08:29→08:49)
[2018-05-23] MEDS: MAGNESIUM OXIDE 400 MG TAB PO SCH ×3 (08:31→11:14)
[2018-05-23] MEDS: POLYETHYLENE GLYCOL 3350 17 GM PKT PO SCH (08:31)
[2018-05-23] MEDS: SENNOSIDES/DOCUSATE SODIUM TAB PO SCH (08:38)
--- NOTE | 2018-05-23 09:31 | NEUSURGPN ---
Assessment/Plan: Assessment: 63 yo F POD #3 C3/4, redo C4/5, C6/7 ACDF and C3-7 posterior fusion Plan: stable continue hard collar Tolerate PO okay Discussed alternating muscle relaxers Valium and Robaxin hx of urinary retention, was replaced yesterday. Will d/c home with Hernandez and have her follow up as an outpatient post op x-rays show intact hardware PT/OT please call with neuro changes Discussed with Dr. Mracus Subjective: posterior neck burning pain Objective: NAD A&Ox3 MAEx4 5/5 and equal in BUE and BLE. Dressing c.d.i, NOE drains serosanguineous Catheter Insertion Date: 05/20/18 - Physician Discussed Patient with : Tom Neurosurgery Physical Exam - Vitals, I&O, Labs I and O 05/22/18 05/23/18 05/24/18 05:59 05:59 05:59 Intake Total 200 550 Output Total 805 2460 Balance -605 -1910 Intake: Oral (ml) 200 550 Output: Urine (ml) 550 2400 Catheter 550 2400 NOE Drain Output (ml) 255 60 #1 Anterior Neck 15 10 #2 Posterior Neck 240 50 Other: Intake Quantity Yes Yes Sufficient Output Comment Catheter missed hat Number of Voids Catheter 1 Bladder Scan Volume (ml) Catheter 212 Vital Signs Temp Pulse Resp BP Pulse Ox 36.2 C 69 14 118/74 92 05/23/18 07:35 05/23/18 07:35 05/23/18 07:35 05/23/18 07:35 05/23/18 07:35 Laboratory Results 05/21/18 05:20 05/21/18 05:20 ICD10 Worksheet Patient Problems: Problems Problem Status Onset Fusion of spine of cervical region Acute
[2018-05-23] MEDS: DIAZEPAM 5 MG/ML 1 ML SYR IVP PRN (11:34)
--- NOTE | 2018-05-23 12:32 | PDIAF ---
- Diagnosis Code Status: Full Code - Medication Management Discharge Medications: Medications to Continue on Transfer Cevimeline HCl [Evoxac] 30 mg PO TID 04/11/18 [Last Taken 05/20/18 06:00] Escitalopram Oxalate [Lexapro] 20 mg PO DAILY 04/11/18 [Last Taken 05/20/18 06: 00] Estrogen Cream 1 jes TD HS 04/11/18 [Last Taken 05/19/18] Levothyroxine [Synthroid 88 mcg (*)] 88 mcg PO DAILY06 04/11/18 [Last Taken 06:00] Progesterone Cap 250 mg PO HS 04/11/18 [Last Taken 05/19/18 21:00] Docusate Sodium 250 mg PO HS 05/12/18 [Last Taken 05/19/18 21:00] Herbals/Supplements -Info Only 1 ea PO DAILY 05/12/18 [Last Taken 05/13/18] Magnesium Oxide [Magnesium Oxide 400 mg (*)] 200 mg PO DAILY 05/12/18 [Last Taken 05/20/18 06:00] Magnesium Oxide [Magnesium Oxide 400 mg (*)] 400 mg PO HS 05/12/18 [Last Taken 05/19/18 21:00] Diazepam [Valium 5 MG (*)] 5 mg PO Q8 #60 tab 05/23/18 [Last Taken Unknown] HYDROmorphone HCL [Dilaudid 2 mg (*)] 2 - 4 mg PO Q4H PRN #90 tab 05/23/18 [ Last Taken Unknown] Methocarbamol [Robaxin 750 mg (*)] 750 mg PO QID PRN #60 tab 05/23/18 [Last Taken Unknown] Sennosides/Docusate Sodium [Senokot-S] 1 - 2 tab PO BID tab 05/23/18 [Last Taken Unknown] Discharge Medications: Refer to the Discharge Home Medication list for PRN reason. - Orders Services needed: Registered Nurse, Physical Therapy, Occupational Therapy Diet Texture: Regular Texture Diet, Thin Liquids, Meds Whole in Puree Additional Instructions: Follow up with urology in -7 to evaluate for Hernandez catheter removal. Contineu ahrd collar at all tiem other than shower. Okay to shower tomorrow (05/24). - Follow Up Care Current Providers and Referrals: KAYA GUERRERO [Primary Care Provider] -
[2018-05-23 15:49] VITALS: BP 124/76
--- NOTE | 2018-05-23 17:15 | ASMTCMCOM ---
CM Note CM Note Notes: Pt medically stable for d/c. 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 No CM d/c needs identified. Date Signed: 05/23/2018 05:14 PM Electronically Signed By:NINA Harrison
--- NOTE | 2018-05-23 17:15 | ASDISCHSUM ---
Discharge Information Plan Status:Home with No Needs Medically Cleared to Leave: Discharge Date:05/23/2018 04:45 PM CM D/C Disposition:Home, Routine, Self-Care ADT D/C Disposition:Home Health Service Projected Discharge Date:05/23/2018 04:45 PM Transportation at D/C: Discharge Delay Reason: Follow-Up Date:05/23/2018 04:45 PM Discharge Slot: Final Diagnosis: Placement Information Patient Contact Information Contact Name:DEMETRI Relationship: Address:[address] Work Phone: City:[place] [facility] [place] Phone: [facility]/Zip Code:[place] [address] Email: Financial Information Financial Class:CENTERSONIC [facility] Primary Plan Number:[id number] Secondary Plan Desc: Secondary Plan Number: Assessment Information LACE LACE Length of stay for Answers: 4-6 days current admission Acuity / Level of Answers: Yes Care: Did the patient have an inpatient admission? Comorbidities - select Answers: Opioid dependence all that apply / Chronic pain Other Notes: Hypothyroidism # of Emergency department Answers: 1-2 visits in the last 6 months Social determinants Answers: Mental health diagnosis (anxiety, depression, pers onality disorders, etc.) Score: 16 Date Signed: 05/23/2018 05:12 PM Electronically Signed By:NINA Harrison [facility] GARY Progress Note CM Note CM Note Notes: Chart reviewed, pt had planned surgery. OT rec home, [facility] [employer] rec home. PT eval pending. Pt does not require feeding tube. Resides with . CM to follow for d/c planning. Date Signed: 05/21/2018 04:22 PM Electronically Signed By:NINA Harrison [facility] CM Progress Note CM Note CM Note Notes: Pt medically stable for d/c. 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 No CM d/c needs identified. Date Signed: 05/23/2018 05:14 PM Electronically Signed By:NINA Harrison Intervention Information
--- NOTE | 2018-05-28 09:19 | GDS ---
[f rep st] DISCHARGE SUMMARY ADMISSION DIAGNOSES: 1. Cervical pseudoarthrosis. 2. 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 DISCHARGE DIAGNOSES: 1. Status post C4-C7 plate removal. 2. C4-5 and C6-7 redo anterior cervical diskectomy and fusion. 3. C3-4 anterior cervical diskectomy and fusion. 4. C3-7 posterior instrumentation and fusion. HISTORY AND PHYSICAL: Please see admission history and physical. HOSPITAL COURSE: The patient is a 63-year-old female who presented with progressively worsening neck pain and headaches. She was taken to the operating room on 05/20/2018, where she underwent the plat e removal from C4 through 7, followed by a redo C4-5 and C6-7 anterior cervical diskectomy and a new C3-4 anterior cervical diskectomy and fusion, followed by a C3-7 posterior instrumentation and fusion . There were no intraoperative complications and she was admitted to the floor for observation. On the floor, she was tolerating a regular diet and her pain was controlled with p.o. pain medication s. She made slow progress with Physical Therapy and Occupational Therapy. Her postoperative x-rays showed good position of the hardware. Intraoperatively, she did have a Dobhoff that was placed, anti cipating that she would have postoperative dysphagia. She was able to tolerate a regular diet and th e Dobhoff polyp was subsequently removed. DISPOSITION: She was discharged home in stable condition on 05/23/2018. DISCHARGE INSTRUCTIONS: Patient was discharged with postoperative instructions and recommended she r [place] for neurosurgical followup appointment in 10 to 14 days. /[id number]/MODL
== END 2018-05-23 16:45 | disposition home health service (06) | DRG 454 ==
LOC: F3N 09:12
PROVIDERS: ADMIT Neurological Surgery; ATTEND Neurological Surgery
DX: M48.02 Spinal stenosis, cervical region (principal); M96.0 Pseudarthrosis after fusion or arthrodesis; Z98.1 Arthrodesis status; M19.041 Primary osteoarthritis, right hand; M19.042 Primary osteoarthritis, left hand
CPT/HCPCS: 92526-GN; 92610-GN; 97161-GP; 97165-GO; 97535-GO; C1713; C1762; J0171; J0690; J1170; J1650; J2250; J2270; J2370; J2405; J2704; J2765; J3010; J3360; J7060